=== PATIENT | male | born 1985 | race Caucasian/White ===

== ENCOUNTER 2016-07-30 10:15 | Day surgery (SDC) | payer OTHER ==
[~2016-07-30 10:15] MED LIST: CEFAZOLIN 2 GM/D5W RTU 2 GM/50 ML RTUPB IV PRN; LACTATED RINGERS 1000 ML IV PRN; LIDOCAINE 0.5% INJ-PF (5 MG/ML) 50 ML SDV SUBCUT PRN; LIDOCAINE 2% INJ-PF (20 MG/ML) 10 ML AMPUL ONE; ONDANSETRON HCL INJ/PF 4 MG/2 ML SDV ONE
[2016-07-30] MEDS ORDERED: BUPIVACAINE HCL 0.25 % INJ/PF (2.5 MG/1 ML) 30 ML VIAL ONE (10:40)
[2016-07-30] MEDS ORDERED: FENTANYL CITRATE INJ/PF 100 MCG/2 ML AMPUL ONE (13:28)
[2016-07-30] MEDS ORDERED: MIDAZOLAM 2 MG/2 ML INJ ONE (13:29)
[2016-07-30] MEDS ORDERED: PROPOFOL INJ 200 MG/20 ML VIAL IV ONE (13:30)
[2016-07-30] MEDS ORDERED: DEXMEDETOMIDINE INJ 80 MCG/20 ML VIAL IV ONE (13:31)
[2016-07-30] MEDS ORDERED: MEPERIDINE HCL/PF INJ 25 MG/1 ML DISP.SYRIN IV PRN (14:16)
[2016-07-30] MEDS ORDERED: DIPHENHYDRAMINE HCL 50 MG/ML VIAL IV PRN (14:16)
[2016-07-30] MEDS ORDERED: MORPHINE SULFATE 10 MG/ML INJ IV PRN (14:16)
[2016-07-30] MEDS ORDERED: FENTANYL CITRATE INJ/PF 100 MCG/2 ML AMPUL IV PRN ×3 (14:16)
[2016-07-30] MEDS ORDERED: PROMETHAZINE HCL INJ 25 MG/1 ML VIAL IV PRN ×2 (14:16)
[2016-07-30] MEDS: FENTANYL CITRATE INJ/PF 100 MCG/2 ML AMPUL ONE ×2 (15:53→15:58)
[2016-07-30] MEDS ORDERED: OXYCODONE-ACETAMINOPHEN 5-325 MG TABLET ONE (16:37)
--- NOTE | 2016-07-30 17:23 | OPERATIVE REPORT E ---
Operative Report NAME: DIONE PEARSON : 1985 AGE: 31Y DATE OF SURGERY: 07/30/2016 ROOM: INDICATIONS FOR PROCEDURE: The patient is a 31-year-old male with a history of right-sided testicular pain, noted right grade I varicocele on exam and also left testicular pain with history of testicular torsion on the right. States he had orchiopexy on that side but never on the left. He was counseled on the risks, benefits, and side effects of a right-sided varicocelectomy and left-sided orchiopexy and consented to proceed. PREOPERATIVE DIAGNOSES: 1. Right varicocele. 2. Left testicular pain. POSTOPERATIVE DIAGNOSES: 1. Right varicocele. 2. Left testicular pain. OPERATION PERFORMED: 1. Right microscopic varicocelectomy. 2. Left orchiopexy. SURGEON: GWEN MORALES D.O. [employer]ED [employer]IP[employer] ETCHER: Dr. Tito Field, Attending Commander, [facility]. ANESTHESIA: General. INTRAVENOUS FLUIDS: 800 mL lactated Ringer's. ESTIMATED BLOOD LOSS: Less than 5 mL. URINE OUTPUT: Zero. COMPLICATIONS None. DRAINS: None. SPECIMEN: None. FINDINGS: He had 3 dilated veins in his pampiniform plexus with 1 vein perforating from the inguinal canal. DESCRIPTION OF PROCEDURE: The patient was met in the preop holding. Risks, benefits, side effects of a right-sided varicocelectomy and left orchiopexy were again reviewed with the patient. He consented to proceed. He was brought to the operative theatre and placed on the table in supine position where general anesthesia was induced. He was then sterilely prepped and draped in the usual fashion. A time out was performed to ensure proper patient, proper procedure, proper laterality being the right for the varicocelectomy and left for the orchiopexy. Preoperative antibiotics were administered. With all in agreement, we proceeded. A 4-cm incision was made just superior and lateral to the external inguinal ring on the right. This was deepened down through to the external oblique fascia which was entered in the direction of it fibers with the Metzenbaum scissors. The cord was dissected from its surroundings with blunt dissection and then isolated with a [place] drain. We entered the external internal spermatic fascia with electrocautery, and then isolated the dilated veins of the spermatic cord. There was 1 vein seen perforating the inguinal canal which was isolated separately and sequentially ligated with 4-0 silk ties. There were 3 dilated veins in the pampiniform plexus which were each sequentially ligated. The artery was identified with Doppler ultrasound and avoided. The cord was then returned to the canal and a cord block was performed 0.25% Marcaine. The external oblique fascia was closed with a running 3-0 Vicryl suture and then the fascia injected with 0.25% Marcaine for field block as well. The Amador's was closed with interrupted 3-0 Vicryl sutures and then the subcutaneous tissues were closed with interrupted 3-0 Vicryl sutures as well as the skin was closed with a running 4-0 Monocryl in a subcuticular fashion. The skin sealed with Dermabond. We then focused on the orchiopexy. A 5-cm incision as made in the median raphe and deepened down to the tunica vaginalis which was entered which showed significant scar suggesting prior orchiopexy although the patient denied that this had been the case. Once this was cleared from the tissue, we performed a 2-point orchiopexy concerning the nature of the already scarred fascia around the testicle. Then, 4-0 Prolene was used to fix the lateral and inferior portions of the testicle which was then turned to its orthotopic position. Once this was completed, we obtained hemostasis with electrocautery and closed *------* with a running 3-0 Vicryl suture with several locked sutures for hemostasis and then closed the scrotal skin with running 3-0 Vicryl in a horizontal mattress fashion. The skin was sealed with Dermabond and a scrotal support and soft gauze were placed. The patient tolerated the procedure well. He was awakened and taken to the PACU in good condition. At the conclusion of the case, all instrument, needle, and sponge counts were complete and correct. DICTATING PHYSICIAN: GWEN MORALES D.O. [id number] PHY#: [id number] ID: [id number] JOB#: [id number] ACCT: [id number] cc:GWEN MORALES D.O. >
[2016-07-30 18:12] VITALS: BP 121/84
== END 2016-07-30 17:45 | disposition home or self-care (01) ==
LOC: OROUT 10:15
PROVIDERS: ATTEND Surgery
PROC: 0VBF0ZZ Excision of Right Spermatic Cord, Open Approach (ICD-10-PCS; principal; 2016-07-30 12:30)
PROC: 0VQB0ZZ Repair Left Testis, Open Approach (ICD-10-PCS; 2016-07-30 12:30)
DX: I86.1 Scrotal varices (principal); N50.812 Left testicular pain; Z79.1 Long term (current) use of non-steroidal anti-inflammatories (NSAID)
CPT/HCPCS: 55535; 54640; J2250; J3010; J2405; J2704; J3490 ×2; J0690; 930